=== PATIENT | female | born 1990 | race Two or more races ===

== ENCOUNTER 2017-06-25 21:54 | Emergency (ER) | payer OTHER, SELFPAY ==
[~2017-06-25] VITALS: Ht 165.1 cm; Wt 86.0 kg
[2017-06-25] MEDS ORDERED: SODIUM CHLORIDE 0.9% 1,000 ML IV ONE (22:16)
[2017-06-25 22:45] LABS: BASOPHILS # (AUTO) 0.05 x10^3/uL (0-0.1); BASOPHILS % (AUTO) 1 % (0-1); EOSINOPHILS # (AUTO) 0.13 x10^3/uL (0-0.4); EOSINOPHILS % (AUTO) 2 % (1-7); LYMPHOCYTES # (AUTO) 1.82 x10^3/uL (1-3.4); LYMPHOCYTES % (AUTO) 31 % (22-44); MD NO; MEAN CORPUSCULAR HEMOGLOBIN 29.2 pg (27.0-34.8); MEAN CORPUSCULAR HGB CONC 33.3 g/dL (32.4-35.8); MEAN CORPUSCULAR VOLUME 87.4 fL (80-100); MEAN PLATELET VOLUME 8.9 fL (7.4-10.4); MONOCYTES # (AUTO) 0.55 x10^3/uL (0.2-0.8); MONOCYTES % (AUTO) 9 % (2-9); NEUTROPHILS # (AUTO) 3.35 x10^3/uL (1.8-6.8); NEUTROPHILS % (AUTO) 57 % (42-75); PLATELET COUNT 271 x10^3/uL (130-400); RED BLOOD COUNT 4.56 x10^6/uL (3.82-5.3); RED CELL DISTRIBUTION WIDTH 13.3 % (9.6-15.2)
[2017-06-25 22:55] LABS: ALANINE AMINOTRANSFERASE 25 U/L (12-78); ALBUMIN 3.7 g/dL (3.4-5.0); ANION GAP 6 mmol/L (5-15); CALCIUM 8.3 mg/dL (8.5-10.1); CHLORIDE 109 mmol/L (98-107); CREATININE 0.95 mg/dL (0.55-1.02)
[2017-06-25 22:56] LABS: ACETAMINOPHEN < 2 mcg/mL (10-30); SALICYLATE LEVEL < 1.7 mg/dL (2.8-20.0)
[2017-06-25 23:00] LABS: ALKALINE PHOSPHATASE 61 U/L (45-117); BILIRUBIN,TOTAL 0.2 mg/dL (0.2-1.0); TOTAL PROTEIN 7.1 g/dL (6.4-8.2)
[2017-06-25 23:08] LABS: INTERNATIONAL NORMALIZED RATIO 0.97 (0.93-1.1)
[2017-06-25 23:12] LABS: MICROSCOPIC NOT IND
[2017-06-25 23:23] LABS: CULTURE INDICATED? NO
[2017-06-25 23:52] VITALS: BP 105/71
== END 2017-06-26 00:25 | disposition home or self-care (01) ==
LOC: ED 23:38
DX: R10.84 Generalized abdominal pain (principal)
CPT/HCPCS: 36415; 80053; 80307; 80329; 81003; 83690; 84703; 85025; 85610; 85730; 96360; 96361; 99285; J7030; G0480

== ENCOUNTER 2019-08-13 13:25 | Emergency (ER) | payer BC, OTHER ==
[~2019-08-13] VITALS: Ht 165.1 cm; Wt 86.3 kg
--- NOTE | 2019-08-13 13:49 | NUR ---
Pt ambulated back to room, smooth and steady gait, clean catch urine sample collect. Pt changed into gown, sitting on gurney, call light within reach, NAD, denies additional needs, warm blanket given for comfort. Report to main RN.
[2019-08-13] MEDS ORDERED: GABA300C10 PO (13:53)
[2019-08-13] MEDS ORDERED: SPIR100T4 PO (13:54)
[2019-08-13] MEDS ORDERED: MINO50CA3 PO (13:54)
[2019-08-13] MEDS ORDERED: SPIR25TA5 PO (13:55)
--- NOTE | 2019-08-13 14:31 | NUR ---
UA COLLECTED AND SENT TO LAB.
[2019-08-13 14:54] LABS: MICROSCOPIC INDICATED
[2019-08-13 15:04] LABS: MEAN CORPUSCULAR HEMOGLOBIN 28.6 pg (27.0-34.8); MEAN CORPUSCULAR HGB CONC 32.9 g/dL (32.4-35.8); MEAN PLATELET VOLUME 9.1 fL (7.4-10.4); PLATELET COUNT 275 x10^3/uL (130-400); RED BLOOD COUNT 4.65 x10^6/uL (3.82-5.3); RED CELL DISTRIBUTION WIDTH 14.2 % (9.6-15.2)
[2019-08-13 15:06] LABS: CULTURE INDICATED? YES
[2019-08-13 15:10] LABS: BASOPHILS # (AUTO) 0.03 x10^3/uL (0-0.1); BASOPHILS % (AUTO) 1 % (0-1); EOSINOPHILS # (AUTO) 0.04 x10^3/uL (0-0.4); EOSINOPHILS % (AUTO) 1 % (1-7); LYMPHOCYTES # (AUTO) 1.26 x10^3/uL (1-3.4); LYMPHOCYTES % (AUTO) 23 % (22-44); MONOCYTES # (AUTO) 0.56 x10^3/uL (0.2-0.8); MONOCYTES % (AUTO) 10 % (2-9); NEUTROPHILS # (AUTO) 3.67 x10^3/uL (1.8-6.8); NEUTROPHILS % (AUTO) 66 % (42-75)
[2019-08-13 15:17] LABS: ALANINE AMINOTRANSFERASE 20 U/L (12-78); ALBUMIN 3.3 g/dL (3.4-5.0); ANION GAP 3 mmol/L (5-15); CALCIUM 8.6 mg/dL (8.5-10.1); CHLORIDE 110 mmol/L (98-107); CREATININE 0.83 mg/dL (0.55-1.02)
[2019-08-13 15:21] LABS: ALKALINE PHOSPHATASE 53 U/L (45-117); BILIRUBIN,TOTAL 0.2 mg/dL (0.2-1.0); TOTAL PROTEIN 6.7 g/dL (6.4-8.2)
[2019-08-13 15:29] VITALS: BP 127/83
[2019-08-13 15:31] LABS: MD NO
[2019-08-13] MEDS ORDERED: KETOROLAC 30 MG/1 ML IM ONE (16:00)
== END 2019-08-13 16:18 | disposition home or self-care (01) ==
LOC: ED 14:16
DX: N92.0 Excessive and frequent menstruation with regular cycle (principal); Z98.51 Tubal ligation status
CPT/HCPCS: 36415; 80053; 81001; 84703; 85025; 87086; 99283

== ENCOUNTER 2020-03-17 14:12 | Emergency (ER) | payer BC ==
[~2020-03-17] VITALS: Ht 165.1 cm; Wt 87.7 kg
[~2020-03-17 14:12] MED LIST: GABA300C10 PO; MINO50CA3 PO; SPIR100T4 PO; SPIR25TA5 PO
[2020-03-17 14:14] VITALS: BP 109/70
== END 2020-03-17 15:22 | disposition home or self-care (01) ==
LOC: ED 15:00
DX: K02.9 Dental caries, unspecified (principal); R22.0 Localized swelling, mass and lump, head
CPT/HCPCS: 99283

== ENCOUNTER 2020-07-15 02:59 | Emergency (ER) | payer BC ==
[~2020-07-15] VITALS: Ht 165.1 cm; Wt 87.2 kg
--- NOTE | 2020-07-15 03:08 | NUR ---
release of information clerk: EKHG completed in triage
[2020-07-15] MEDS ORDERED: LORazepam 2 MG/ML, 1ML ONE ×2 (03:21→04:00)
--- NOTE | 2020-07-15 03:28 | NUR ---
PT PLACED ON ECG/SPO2/BP MONITORING AT THIS TIME. PT RESTING ON GURNEY, CHANGED INTO GOWN, MEDICATED PER JUL, REPORTS COMING IN AFTER SHE DID SOME METH AND BEGAN TO FEEL LIKE HER HEART WAS RACING, PT STATES SHE TOLD HER FAMILY SHE NEEDED TO COME IN WHEN THIS BEGAN, PT NOW EXPERIENCING "CHEST PRESSURE NOT PAIN". BED IN LOWEST, RAILS ENGAGED, CALL LIGHT ON LAP, WCTM. LABS SENT
[2020-07-15] MEDS ORDERED: LORazepam 2 MG/ML, 1ML IVPush ONE ×3 (03:30→04:30)
[2020-07-15] MEDS ORDERED: SODIUM CHLORIDE 0.9% 1,000ML IVBOLUS ONE (03:30)
[2020-07-15 03:37] LABS: BASOPHILS % (AUTO) 1 % (0-1); EOSINOPHILS % (AUTO) 0 % (1-7); LYMPHOCYTES % (AUTO) 21 % (22-44); MEAN CORPUSCULAR HEMOGLOBIN 27.8 pg (27.0-34.8); MEAN CORPUSCULAR HGB CONC 32.8 g/dL (32.4-35.8); MEAN PLATELET VOLUME 9.4 fL (7.4-10.4); MONOCYTES % (AUTO) 6 % (2-9); NEUTROPHILS % (AUTO) 72 % (42-75); PLATELET COUNT 316 x10^3/uL (130-400); RED BLOOD COUNT 5.01 x10^6/uL (3.82-5.3)
[2020-07-15 03:39] LABS: MD NO
[2020-07-15 03:49] LABS: ALANINE AMINOTRANSFERASE 29 U/L (12-78); ALBUMIN 4.2 g/dL (3.4-5.0); ANION GAP 10 mmol/L (5-15); CALCIUM 8.5 mg/dL (8.5-10.1); CHLORIDE 113 mmol/L (98-107); CREATININE 0.77 mg/dL (0.55-1.02)
[2020-07-15 03:54] LABS: ALKALINE PHOSPHATASE 68 U/L (45-117); BILIRUBIN,TOTAL 0.1 mg/dL (0.2-1.0); TROPONIN I < 0.015 ng/mL (0.000-0.045)
[2020-07-15] MEDS ORDERED: ADENOSINE 6 MG/2 ML ONE (05:01)
[2020-07-15] MEDS ORDERED: ADENOSINE 6 MG/2 ML IVPush ONE ×2 (05:30→06:00)
--- NOTE | 2020-07-15 05:48 | NUR ---
PT MEDICATED PER MAR, RESTING ON [place], [place], NO CHANGE IN CONDITION, UP TO RESTROOM WITH A SMOOTH AND STEADY GAIT, BACK TO [place] BLUM, DENIES ADDITIONAL QUESTIONS OR NEEDS AT THIS TIME. UPDATED ON POC, BED IN LOWEST, RAILS ENGAGED, CALL LIGHT ON LAP, WCTM.
--- NOTE | 2020-07-15 06:31 | NUR ---
pt resting on gune[place], nad, appears comfortable, heart rate slightly decreased, no other changes in condition, bed in lowest, rails engaged, call light on lap, wctm.
--- NOTE | 2020-07-15 06:54 | NUR ---
BEDSIDE REPORT TO SONYA SONG, PT CARE TRANSFERRED AT THIS TIME.
--- NOTE | 2020-07-15 06:54 | NUR ---
REPORT RECEIVED FROM ASHLEY SONG.
[2020-07-15 07:05] VITALS: BP 126/70
--- NOTE | 2020-07-15 07:05 | NUR ---
Patient given discharge instructions and they have confirmed that they understand the instructions. PT'S HR IS 120'S AT DC. EDMD OK'D TO DC.
== END 2020-07-15 07:06 | disposition home or self-care (01) ==
LOC: ED 03:52
DX: T43.621A Poisoning by amphetamines, accidental (unintentional), initial encounter (principal); F41.1 Generalized anxiety disorder; R00.0 Tachycardia, unspecified; R06.4 Hyperventilation; I49.3 Ventricular premature depolarization; I48.91 Unspecified atrial fibrillation; Z98.51 Tubal ligation status; Y92.89 Other specified places as the place of occurrence of the external cause
CPT/HCPCS: 36415; 71045; 80053; 84484; 84703; 85025; 92960; 93005; 96374; 96376; 99285; J0153; J2060; J7030; 96375